=== PATIENT | male | born 1980 | race Caucasian/White ===

== ENCOUNTER 2017-06-20 09:18 | Emergency (ER) | payer MEDICARE, SELFPAY ==
[2017-06-20 09:33] VITALS: BP 146/92; PULSE 97; RESP 20; TEMP 36.9; O2SAT 96; BMI 44.0
--- NOTE | 2017-06-20 09:40 | HMH.EDUTC ---
[facility] [place] Clinical Impression: URI (upper respiratory infection) Qualifiers: URI type: unspecified URI Qualified Code(s): J06.9 - Acute upper respiratory infection, unspecified Disposition: Home, Self-Care Condition on Discharge: Good Instructions: Sore Throat, DI for Nasal Congestion, DI for Cough -- Adult Additional Instructions: * Monitor Temp. Tylenol and/or Ibuprofen as needed. ER if fever is no less than 101 despite alternating Tylenol and Ibuprofen * Encourage fluids, water, Gatorade, powerade, pedialyte if infant/toddler/or child * Warm salt water gargles for throat irritation *Warm fluids *Sore throat lozenges *Sleep elevated *humidifier or vaporizer Lots of rest Increase fluids, water, Gatorade, powerade *Flonase 2 sprays each nostril daily but may take 2-3 days to notice improvement with it *Your throat swab was sent to lab for culture. Those results area typically sent to your primary care physician. Be sure to follow up in 2-3 days if no improvement so they can review those results and treat if necessary If you dont have primary care I recommend you get one, but in the mean time you will have to return to a walk in clinic Follow up IMMEDIATELY for new or worsening of symptoms OR no noticeable improvement over the next 48-72 hours. 911 immediately for any life threatening symptoms such as chest pain or difficulty breathing Prescriptions: Azithromycin [Z-Clark 250mg Tab] 250 mg PO UD DOSE PK #6 tab predniSONE [Prednisone 20mg Tab] 20 mg PO BID #10 tab Referrals: Sadiq Almaraz [Primary Care Provider] - Time of Disposition: 09:54 Medical Decision Making - Medical Records Medical records reviewed: Yes: I reviewed the patient's medical records. Vital Signs: 06/20/17 09:33 Temperature 98.4 F Temperature Source Temporal Artery Scan Pulse Rate [Right] 97 H Respiratory Rate 20 Blood Pressure [Right Arm] 146/92 Blood Pressure Mean [Right Arm] 110 Blood Pressure Position [Right Arm] Sitting 02 Sat by Pulse Oximetry 96 Oxygen Delivery Method Room Air - Lab Data Lab results reviewed: Yes: I reviewed the patient's lab results. - Clive Inquiry Pt receiving controlled substance: No Clive was queried for this patient: No [facility] [place] - General Stated complaint: sore throat ear pain Mode of Arrival: Ambulatory Source of Information: Patient Limitations: No Limitations Description of Symptoms (Recalled from Triage Doc. by RN): sore throat, earache, cough x2 days HEENT Symptoms (Recalled from RN notes): Yes Resp Symptoms (Recalled from RN notes): No Skin Symptoms (Recalled from RN notes): No MS Symptoms (Recalled from RN notes): No Functional Status (Recalled from RN notes): N - History of Present Illness Provider Complaint: Patient state that he has been having sorethroat, earache, headache and flu like symptoms for 2 days now State that symptoms have continued to get worse States that today he has been having body aches chills and feeling worse States that his kids have been sick on and off for the last couple of weeks State that his throat feels raw and irritated and hurts when he swallows - Related Data Home Medications Medication Instructions Recorded Confirmed Escitalopram Oxalate [Lexapro] 10 mg PO DAILY 06/20/17 06/20/17 Gabapentin [Neurontin 600mg 600 mg PO DAILY 06/20/17 06/20/17 tablet] Methadone HCl [Methadone 10mg 0 mg PO DAILY 06/20/17 06/20/17 Tablet] Previous Rx's Medication Instructions Recorded Azithromycin [Z-Clark 250mg Tab] 250 mg PO UD DOSE PK #6 tab 06/20/17 predniSONE [Prednisone 20mg 20 mg PO BID #10 tab 06/20/17 Tab] Allergies Allergy/AdvReac Type Severity Reaction Status Date / Time From MYCOLOG-II Allergy Intermediate I-HIVES Uncoded 04/09/17 14:34 Penicillin Allergy Intermediate I-HIVES Uncoded 04/09/17 14:34 - Worker's Comp Is this a Worker's Comp case?: No [facility] History I have reviewed the patient's past medical histo
--- NOTE | 2017-06-20 09:43 | ED_ITS ---
[facility] – [place] Disposition Clinical Impression: URI (upper respiratory infection) Qualifiers: URI type: unspecified URI Qualified Code(s): J06.9 - Acute upper respiratory infection, unspecified Disposition: Home, Self-Care Condition on Discharge: Good Instructions: Sore Throat, DI for Nasal Congestion, DI for Cough -- Adult Additional Instructions: * Monitor Temp. Tylenol and/or Ibuprofen as needed. ER if fever is no less than 101 despite alternating Tylenol and Ibuprofen * Encourage fluids, water, Gatorade, powerade, pedialyte if infant/toddler/or child * Warm salt water gargles for throat irritation *Warm fluids *Sore throat lozenges *Sleep elevated *humidifier or vaporizer Lots of rest Increase fluids, water, Gatorade, powerade *Flonase 2 sprays each nostril daily but may take 2-3 days to notice improvement with it *Your throat swab was sent to lab for culture. Those results area typically sent to your primary care physician. Be sure to follow up in 2-3 days if no improvement so they can review those results and treat if necessary If you don? t have primary care I recommend you get one, but in the mean time you will have to return to a walk in clinic Follow up IMMEDIATELY for new or worsening of symptoms OR no noticeable improvement over the next 48-72 hours. 911 immediately for any life threatening symptoms such as chest pain or difficulty breathing Prescriptions: Azithromycin [Z-Clark 250mg Tab] 250 mg PO UD DOSE PK #6 tab predniSONE [Prednisone 20mg Tab] 20 mg PO BID #10 tab Referrals: Sadiq Almaraz [Primary Care Provider] - Time of Disposition: 09:54 Medical Decision Making - Medical Records Medical records reviewed: Yes: I reviewed the patient's medical records. Vital Signs: 06/20/17 09:33 Temperature 98.4 F Temperature Source Temporal Artery Scan Pulse Rate [Right] 97 H Respiratory Rate 20 Blood Pressure [Right Arm] 146/92 Blood Pressure Mean [Right Arm] 110 Blood Pressure Position [Right Arm] Sitting 02 Sat by Pulse Oximetry 96 Oxygen Delivery Method Room Air - Lab Data Lab results reviewed: Yes: I reviewed the patient's lab results. - Clvie Inquiry Pt receiving controlled substance: No Clive was queried for this patient: No [facility] [place] HPI - General Stated complaint: sore throat ear pain Mode of Arrival: Ambulatory Source of Information: Patient Limitations: No Limitations Description of Symptoms (Recalled from Triage Doc. by RN): sore throat, earache , cough x2 days HEENT Symptoms (Recalled from RN notes): Yes Resp Symptoms (Recalled from RN notes): No Skin Symptoms (Recalled from RN notes): No MS Symptoms (Recalled from RN notes): No Functional Status (Recalled from RN notes): N - History of Present Illness Provider Complaint: Patient state that he has been having sorethroat, earache, headache and flu like symptoms for 2 days now State that symptoms have continued to get worse States that today he has been having body aches chills and feeling worse States that his kids have been sick on and off for the last couple of weeks State that his throat feels raw and irritated and hurts when he swallows - Related Data Home Medications Medication Instructions Recorded Confirmed Escitalopram Oxalate [Lexapro] 10 mg PO DAILY 06/20/17 06/20/17 Gabapentin [Neurontin 600mg 600 mg PO DAILY 06/20/17 06/20/17 tablet] Methadone HCl [Methadone 10mg 0 mg PO DAILY 06/20/17 06/20/17 Tablet]
[2017-06-20 09:55] LABS: UTC Influenza A Antigen Negative (Negative); UTC Influenza B Antigen Negative (Negative); UTC Strep Screen (Rapid) Negative (Negative)
[2017-06-20 09:57] VITALS: BP 142/88; PULSE 88; RESP 20; TEMP 36.6
== END 2017-06-20 09:58 | disposition home or self-care (01) ==
PROVIDERS: Emergency Provider Nurse Practitioner; Family Provider Internal Medicine; PCP Internal Medicine
DX: J06.9 Acute upper respiratory infection, unspecified (principal)
CPT/HCPCS: 87804; 87880; 99203

== ENCOUNTER → 2018-02-12 11:26 | Outpatient (CLI) | payer MEDICARE, SELFPAY ==
--- NOTE | 2018-02-12 11:29 | XR_ITS ---
XR chest 2V HISTORY: ITS.REASON: FEVER, COUGH, SPUTUM ORDERING PHYSICIAN: Sadiq Almaraz PATIENT AGE: 37 years COMPARISON: 07/18/2011 FINDINGS: The cardiomediastinal silhouette and pulmonary vascularity are within normal limits. Alveolar opacification is present involving both lungs in the mid and lower lung zones consistent with bilateral pneumonia. No obvious effusion. IMPRESSION: Bilateral pneumonia
== END ==
PROVIDERS: PCP Internal Medicine; Visit Provider Internal Medicine
DX: R50.9 Fever, unspecified (principal); R05 Cough
CPT/HCPCS: 71046

== ENCOUNTER → 2018-04-11 08:13 | Outpatient (CLI) | payer MEDICARE, SELFPAY ==
--- NOTE | 2018-04-11 08:18 | XR_ITS ---
XR chest 2V HISTORY: COPD, pneumonia ITS.REASON: S/P PNEUMONIA,COPD,KNEE PAIN ORDERING PHYSICIAN: Sadiq Almaraz PATIENT AGE: 37 years COMPARISON: 02/12/2018 FINDINGS: The cardiomediastinal silhouette and pulmonary vascularity are within normal limits. There are atelectatic or fibrotic changes in the left lower lobe. Previously noted bilateral pneumonia has improved. There is an area of increased density in the infrahilar region on the right may be related to a new area of pneumonia. Overlapping vessels is also a consideration however this did not have a similar appearance on the previous exam. Would recommend continued follow-up to confirm resolution. This does not resolve then CT may be needed. There is hyperinflation with attenuation of the peripheral pulmonary vessels consistent with COPD. Slight increased density is present in the left apex and may be due to some underlying pleural thickening IMPRESSION: COPD with atelectatic or fibrotic change in the lingula. Increased density in the infrahilar region on the right which may be due to underlying pneumonia. Follow-up recommended to confirm resolution
--- NOTE | 2018-04-11 08:18 | XR_ITS ---
XR knee RT 3V HISTORY: Right knee pain ITS.REASON: S/P PNEUMONIA,COPD,KNEE PAIN ORDERING PHYSICIAN: Sadiq Almaraz PATIENT AGE: 37 years COMPARISON: 05/20/2014 FINDINGS: No fracture or dislocation. No lytic or blastic change. Normal mineralization. Mild osteoarthritic changes involve the medial compartment and patellofemoral joint. Increased density in the suprapatellar region suggesting knee joint effusion IMPRESSION: Mild osteoarthritis with knee joint effusion
== END ==
PROVIDERS: PCP Internal Medicine; Visit Provider Internal Medicine
DX: J44.9 Chronic obstructive pulmonary disease, unspecified (principal); J18.9 Pneumonia, unspecified organism; M25.561 Pain in right knee
CPT/HCPCS: 71046; 73562

== ENCOUNTER → 2018-06-05 10:43 | Outpatient (CLI) | payer MEDICARE, MEDICAID, SELFPAY ==
--- NOTE | 2018-06-05 10:47 | XR_ITS ---
XR knee RT 4V HISTORY: Right knee pain ITS.REASON: 4 views weightbearing ORDERING PHYSICIAN: Marion Randall MD PATIENT AGE: 37 years COMPARISON: None FINDINGS: Weightbearing views are performed. There is slight decrease in the medial joint space and patellofemoral joint space suggesting minimal osteoarthritic change. There is some increased density suprapatellar region suggesting small effusion. No fracture or dislocation. No lytic or blastic change. IMPRESSION: Mild osteoarthritis of the medial compartment and patellofemoral joint with possible small effusion
== END ==
PROVIDERS: PCP Internal Medicine; Visit Provider Orthopaedic Surgery
DX: M25.561 Pain in right knee (principal)
CPT/HCPCS: 73564

== ENCOUNTER → 2018-07-18 09:26 | Outpatient (CLI) | payer MEDICARE, SELFPAY ==
--- NOTE | 2018-07-18 09:30 | XR_ITS ---
XR knee LT 4V HISTORY: Knee pain, weight bearing views ITS.REASON: ap, lateral, sunrise, andersen weight bearing ORDERING PHYSICIAN: Marion Randall MD PATIENT AGE: 38 years COMPARISON: 05/20/2014 FINDINGS: There are mild osteoarthritic changes of the medial compartment and minimal osteoarthritic change of the patellofemoral joint. No fracture or dislocation. No lytic or blastic change. IMPRESSION: Osteoarthritis of the left knee at the medial compartment and patellofemoral joint which has progressed since the previous exam
== END ==
PROVIDERS: PCP Internal Medicine; Visit Provider Orthopaedic Surgery
DX: M25.562 Pain in left knee (principal)
CPT/HCPCS: 73564

== ENCOUNTER → 2020-03-02 15:33 | Outpatient (POV) | payer MEDICARE, MEDICAID, SELFPAY | DX: Z00.00 Encounter for general adult medical examination without abnormal findings (principal) ==

== ENCOUNTER → 2020-07-01 14:29 | Outpatient (CLI) | payer MEDICARE, MEDICAID, SELFPAY ==
--- NOTE | 2020-07-01 14:34 | XR_ITS ---
PROCEDURE: XR KNEE LT 4V CLINICAL INDICATION: Lt knee pain COMPARISON: CR [id number] KNEE-LIMITED 2 VIEWS-LT from 05/20/2014 CR [id number] XR knee RT 3V from 04/11/2018 CR [id number] XR knee RT 4V from 06/05/2018 CR [id number] XR knee LT 4V from 07/18/2018 FINDINGS: Mild osteoarthritic changes involve all 3 compartments and may be slightly worse at medial compartment and patellofemoral joint. There is mild lateral tibial translation by 6 mm. No fracture or dislocation. No lytic or blastic change. IMPRESSION: Mild osteoarthritic change which appears slightly worse Dictated by: Deng Moore MD 07/01/2020 15:45 Deng Moore MD in [place] 07/01/2020 15:45
--- NOTE | 2020-07-01 14:34 | XR_ITS ---
PROCEDURE: XR KNEE RT 4V CLINICAL INDICATION: RT knee pain COMPARISON: CR [id number] KNEE-3 VIEWS-RT from 01/05/2013 CR [id number] KNEE-LIMITED 2 VIEWS-LT from 05/20/2014 CR [id number] XR knee RT 3V from 04/11/2018 CR [id number] XR knee RT 4V from 06/05/2018 CR [id number] XR knee LT 4V from 07/18/2018 FINDINGS: Mild osteoarthritic change involves medial compartment patellofemoral joint and appears slightly worse compared to 04/11/2018. There is a well-circumscribed lucency through the lateral tibial plateau lateral aspect. This could be due to an old fracture or ununited ossification center. No lytic or blastic change. IMPRESSION: Mild osteoarthritic change. Well-circumscribed lucency through the lateral tibial plateau suggesting an old fracture. Dictated by: Deng Moore MD 07/01/2020 15:48 Deng Moore MD in [place] 07/01/2020 15:48
== END ==
PROVIDERS: PCP Internal Medicine; Visit Provider Orthopaedic Surgery
DX: M17.0 Bilateral primary osteoarthritis of knee (principal)
CPT/HCPCS: 73564

== ENCOUNTER → 2020-07-20 16:11 | Outpatient (CLI) | payer MEDICARE, MEDICAID, SELFPAY ==
--- NOTE | 2020-07-20 16:17 | MR_ITS ---
PROCEDURE: MR KNEE LT WO CON CLINICAL INDICATION: LT knee pain COMPARISON: No exams were available for comparison TECHNIQUE: Routine multiplanar multi echo sequences are performed without gadolinium enhancement. FINDINGS: There is a complex tear of the posterior horn of the medial meniscus. There appears to be a bucket hang till fragment adjacent to the posterior cruciate ligament. The posterior root, anterior horn and root are intact. There is a small horizontal tear of the anterior horn of the lateral meniscus. Disruption of the ACL is noted with few intact fibers. Partial tear versus sprain is suspected. There is signal abnormality within the posterior cruciate ligament but otherwise appears intact. The MCL and lateral collateral ligament complex are intact. The popliteal tendon and the posterolateral corner structures are unremarkable. The extensor mechanism appears intact. Moderate joint effusion. There is evidence of grade 2 and 3 cartilage loss in the medial, lateral and patellofemoral compartments. Multiple subchondral cystic changes noted at the intercondylar tubercles. Minor tricompartmental osteophyte formation is noted. Small Gasca cyst is noted measuring up to 2 centimeters. No significant bone marrow edema or marrow infiltrative process. IMPRESSION: Complex tear of the posterior horn of the medial meniscus. Possible bucket-handle fragment of the medial meniscus. Partial thickness tear versus sprain of the ACL. Tricompartmental grade 2 and 3 cartilage loss. Degenerative changes with the osteophyte formation. Moderate joint effusion. Dictated by: Aisha Stokes 07/21/2020 10:25 Aisha Stokes in [place] 07/21/2020 10:25
== END ==
PROVIDERS: PCP Internal Medicine; Visit Provider Orthopaedic Surgery
DX: M17.12 Unilateral primary osteoarthritis, left knee (principal)
CPT/HCPCS: 73721

== ENCOUNTER 2020-11-29 08:46 | Emergency (ER) | payer MEDICARE, MEDICAID, SELFPAY ==
[2020-11-29 08:48] VITALS: BP 131/80; PULSE 99; RESP 16; TEMP 36.7; O2SAT 97; BMI 33.3
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
[2020-11-29 09:42] VITALS: BP 107/81; PULSE 67; O2SAT 97
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
[2020-11-29 10:15] VITALS: BP 117/76; PULSE 89; O2SAT 97
[2020-11-29 11:04] VITALS: BP 121/75; PULSE 87; RESP 18; TEMP 36.8; O2SAT 98
== END 2020-11-29 11:07 | disposition home or self-care (01) ==
PROVIDERS: Emergency Provider Internal Medicine; PCP Internal Medicine
DX: S16.1XXA Strain of muscle, fascia and tendon at neck level, initial encounter (principal); V43.52XA Car driver injured in collision with other type car in traffic accident, initial encounter; Y92.488 Other paved roadways as the place of occurrence of the external cause
CPT/HCPCS: 72040; 72072; 72100; 99282

== ENCOUNTER 2021-02-14 09:00 | Outpatient (RCR) | payer MEDICARE, MEDICAID, SELFPAY | END 2021-02-14 09:05 | disposition home or self-care (01) | LOC: PT 09:00 | PROVIDERS: Visit Provider Internal Medicine | DX: M54.2 Cervicalgia (principal); M62.838 Other muscle spasm; M54.31 Sciatica, right side | CPT/HCPCS: 97010; 97012; 97014; 97110; 97140; 97163; 97164; G0283 ==

== ENCOUNTER → 2021-03-01 14:48 | Outpatient (CLI) | payer MEDICARE, MEDICAID, SELFPAY ==
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
== END ==
PROVIDERS: PCP Internal Medicine; Visit Provider Internal Medicine
DX: M54.41 Lumbago with sciatica, right side (principal)
CPT/HCPCS: 72148; 76376

== ENCOUNTER → 2021-03-27 13:02 | Outpatient (POV) | payer MEDICARE, MEDICAID, SELFPAY ==
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
[2021-03-27 13:36] VITALS: BP 146/80; PULSE 84; RESP 18; O2SAT 96; BMI 33.2
== END ==
PROVIDERS: Visit Provider Clinical Nurse Specialist Family Health
DX: M47.896 Other spondylosis, lumbar region (principal); M54.16 Radiculopathy, lumbar region; M51.26 Other intervertebral disc displacement, lumbar region; M48.061 Spinal stenosis, lumbar region without neurogenic claudication
CPT/HCPCS: 99202; G0463

== ENCOUNTER 2021-04-26 13:28 | Day surgery (SDC) | payer MEDICARE, MEDICAID, SELFPAY ==
[2021-04-26 13:47] VITALS: BP 135/78; PULSE 85; RESP 20; TEMP 37.3; O2SAT 97; BMI 32.5
[2021-04-26 14:14] VITALS: BP 161/80; PULSE 78; RESP 18; O2SAT 95
[2021-04-26 14:22] VITALS: PULSE 76; RESP 18; O2SAT 96
[2021-04-26 14:31] VITALS: BP 133/76; PULSE 78; RESP 18; O2SAT 96
--- NOTE | 2021-04-26 14:32 | HMH.PMPROC ---
- Procedure Date: 04/26/21 Time: 14:32 Anesthesiologist:: Jason Moise MD Complications:: None Pre-procedure Diagnosis:: Degenerative disc disease of lumbar spine with lumbar radiculopathy symptoms Post-procedure Diagnosis:: Same Indications for Procedure:: Patient is a pleasant 40-year-old white male who been treating for low back pain and lumbar radicular symptoms. He primarily has right-sided sciatica pain. He has tried and failed all conservative treatments. Including oral medications, and physical therapy. He is present for a lumbar epidural steroid injection today to see if this helps with his pain symptoms. Procedure Details:: Informed consent was obtained and the risk and benefits of the procedure was explained to the patient. The patient was taken to the procedure room. The patient was placed prone on the procedure table. The patient was prepped and draped in sterile fashion. C-arm fluoroscopy was used to view the lumbar spine. Skin and subcutaneous tissues were anesthetized using lidocaine. I placed an 18-gauge epidural needle and advanced into the L4-L5 interspace using fluoroscopic guidance and [id number] to air. After confirmation of needle placement in the epidural space with dye I injected 2 mL of lidocaine 1.5% with Depo-Medrol 80 mg. Patient tolerated the procedure well with no complications. Plan and Disposition:: We will follow-up with him in 2 weeks. Will reevaluate symptoms at that time.
== END 2021-04-26 14:28 | disposition home or self-care (01) ==
LOC: SC.PAINP 13:29
PROVIDERS: PCP Internal Medicine; Visit Provider Anesthesiology
DX: M51.16 Intervertebral disc disorders with radiculopathy, lumbar region (principal); I10 Essential (primary) hypertension; F12.10 Cannabis abuse, uncomplicated; J44.9 Chronic obstructive pulmonary disease, unspecified; M19.90 Unspecified osteoarthritis, unspecified site; Z72.0 Tobacco use; Z88.0 Allergy status to penicillin; Z88.8 Allergy status to other drugs, medicaments and biological substances
CPT/HCPCS: 62323; J1040; Q9966

== ENCOUNTER → 2021-05-09 09:40 | Outpatient (POV) | payer MEDICARE, MEDICAID, SELFPAY ==
[2021-05-09 09:51] VITALS: BP 140/81; PULSE 63; RESP 18; O2SAT 95; BMI 31.1
--- NOTE | 2021-05-09 09:54 | P.CONS_ITS ---
[facility] Pain Management SOAP Note Subjective:: Patient is a 40-year-old white male who presents today for follow-up. He recently had a lumbar epidural steroid injection L4-L5. He does report that his pain did go from a 7 out of 10 to a 4 out of 10. He reports to have had significant pain with the injection. He would like to proceed with repeat injection. He has low back pain with radiation into bilateral lower extremities. He has tried oral medications along with physical therapy for more than 6 weeks and continues with home stretching. 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 Review of Systems General: No recent weight changes, no fever, no sleep disturbances Respiratory: No cough, no shortness of air, no recurring pulmonary infections Cardiovascular/peripheral vascular: No chest pain, no palpitations, no edema, no shortness of breath Gastrointestinal: No new onset incontinence, normal bowel movements reported Genitourinary: No new onset incontinence Musculoskeletal: Low back pain with radiation into bilateral lower extremities Psychiatric: [Normal mood/affect] Neurological: [Denies weakness in extremities], [denies balance issues] Objective:: Physical exam General: Alert and oriented x3, no acute distress, pleasant and cooperative Lungs: Respirations even and unlabored, symmetrical chest expansion Eyes: PERRL Musculoskeletal: Flexion and extension of lumbar [spine] somewhat guarded secondary to pain, [antalgic gait noted] Neurological: Speech clear, no gross sensory deficit Assessment:: Degenerative disc disease lumbar spine with lumbar radiculopathy symptoms Plan:: We will schedule the patient for a #2 lumbar epidural steroid injection L4-L5. He is not on any anticoagulation therapy and is not diabetic. We will see him back in the clinic after the injection for further evaluation. ORT is high risk. Patient has signed and completed a pain management agreement/contract today. Possible side effects of corticosteroids have been discussed with the patient. Risks and benefits of the procedure have been explained to the patient. Patient would like to proceed with the procedure. Patient has been instructed to contact the clinic with any concerns before the next appointment. Dr. Moise has reviewed this note and agrees with this plan of care. This note was dictated using voice recognition software and make contain errors or omissions. [facility] History I have reviewed the patient's past medical history: Yes Medical History: Reports:: Hypertension *Have you ever received a pneumonia vaccine?: No *Have you received a flu vaccine this season?: No Other Medical History: Reports: Arthritis Laterality Cases: Bilateral: Tonsillectomy Other Surgeries: Yes: No Previous Surgery - *Social History Smoking Status: Current every day smoker Tobacco Type: cigarettes # Packs/Day (cigarettes): 2 Alcohol Intake: former Substance Use Type: marijuana *Occupational Status:: disabled *Travel in the last 8 weeks: None Family Hx:: Other
== END ==
PROVIDERS: Visit Provider Clinical Nurse Specialist Family Health
DX: M51.16 Intervertebral disc disorders with radiculopathy, lumbar region (principal)
CPT/HCPCS: 99212; G0463

== ENCOUNTER → 2021-06-12 09:55 | Outpatient (CLI) | payer MEDICARE, MEDICAID, SELFPAY ==
--- NOTE | 2021-06-12 10:02 | XR_ITS ---
FINAL REPORT CLINICAL HISTORY: S/P FALL,RT SHOULDER PAIN FINDINGS: 3 views of the right shoulder were obtained. There is no acute fracture or dislocation. There are mild hypertrophic changes at the AC joint. There are no soft tissue abnormalities. IMPRESSION: No acute process. Reviewed, Interpreted and Dictated by Roberto Rivera MD Transcribed by Cal Ruth Authenticated by Roberto Rivera MD on 06/12/2021 11:17:[address] [facility]
== END ==
PROVIDERS: PCP Internal Medicine; Visit Provider Internal Medicine
DX: M25.511 Pain in right shoulder (principal); W19.XXXD Unspecified fall, subsequent encounter
CPT/HCPCS: 73030

== ENCOUNTER 2021-06-23 13:18 | Day surgery (SDC) | payer MEDICARE, MEDICAID, SELFPAY ==
[2021-06-23 13:21] VITALS: BP 125/79; BP 130/78; BP 133/73; PULSE 68; PULSE 73; RESP 17; RESP 18; TEMP 37.1; O2SAT 97; O2SAT 98; O2SAT 99; BMI 32.1
[2021-06-23 13:36] VITALS: BP 135/81; PULSE 82; O2SAT 98
--- NOTE | 2021-06-23 13:40 | HMH.PMPROC ---
- Procedure Date: 06/23/21 Time: 13:40 Anesthesiologist:: Jason Moise MD Complications:: None Pre-procedure Diagnosis:: Degenerative disc disease of lumbar spine with lumbar radiculopathy symptoms Post-procedure Diagnosis:: Same Indications for Procedure:: Patient is a pleasant 41-year-old white male who we are treating for low back pain with lumbar radiculopathy symptoms. He has increasing pain in his back radiating down both legs. We will plan on lumbar epidural steroid injection under fluoroscopy today to see if this helps with his pain symptoms. Worst pain is on the right today. Procedure Details:: Informed consent was obtained and the risk and benefits of the procedure was explained to the patient. The patient was taken to the procedure room. The patient was placed prone on the procedure table. The patient was prepped and draped in sterile fashion. C-arm fluoroscopy was used to view the lumbar spine. Skin and subcutaneous tissues were anesthetized using lidocaine. I placed an 18-gauge epidural needle and advanced into the L4-L5 interspace using fluoroscopic guidance and [id number] to air. After confirmation of needle placement in the epidural space with dye I injected 2 mL of lidocaine 1.5% with Depo-Medrol 80 mg. Patient tolerated the procedure well with no complications. Plan and Disposition:: We will follow-up with him in 2 weeks. Will reevaluate symptoms at that time.
== END 2021-06-23 13:36 | disposition home or self-care (01) ==
LOC: SC.PAINP 13:19
PROVIDERS: PCP Internal Medicine; Visit Provider Anesthesiology
DX: M51.16 Intervertebral disc disorders with radiculopathy, lumbar region (principal); I10 Essential (primary) hypertension; Z72.0 Tobacco use
CPT/HCPCS: 62323; J1040; Q9966

== ENCOUNTER → 2021-07-20 13:23 | Outpatient (POV) | payer MEDICARE, MEDICAID, SELFPAY ==
[2021-07-20 13:20] VITALS: BP 125/66; PULSE 82; RESP 18; TEMP 37.6; O2SAT 97; BMI 32.1
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
== END ==
PROVIDERS: Visit Provider Student in an Organized Health Care Education/Training Program
DX: M51.16 Intervertebral disc disorders with radiculopathy, lumbar region (principal)
CPT/HCPCS: 99212; G0463

== ENCOUNTER 2021-08-04 12:28 | Day surgery (SDC) | payer MEDICARE, MEDICAID, SELFPAY ==
[2021-08-04 12:37] VITALS: BP 125/67; PULSE 75; RESP 18; TEMP 37.6; O2SAT 95; BMI 32.1
--- NOTE | 2021-08-04 12:48 | HMH.PMPROC ---
- Procedure Date: 08/04/21 Time: 12:48 Anesthesiologist:: Gutierrez Reis CRNA Complications:: None Pre-procedure Diagnosis:: Degenerative disc disease lumbar spine. Bar radiculopathy symptoms. Post-procedure Diagnosis:: Same Indications for Procedure:: Patient is a pleasant 41-year-old male who returns to our injection clinic for a second lumbar epidural steroid injection at the L4-5 level. Patient has had 60 to 70% improvement terms of his low back pain as well as radicular symptoms with first lumbar epidural steroid injection at the L4-5 level. We will repeat the injection today. Procedure Details:: Procedure: Lumbar epidural steroid injection under fluoroscopy Informed consent was obtained and the risks and benefits of the procedure were explained to the patient. The patient was taken to the procedure room and noninvasive monitors placed, including noninvasive blood pressure cuff and pulse oximeter. The back was viewed using C-arm Fluoroscopy and prepped using Betadine as a cleansing solution and the L4-L5 interspace was palpated. Skin and subcutaneous tissues were anesthetized using lidocaine 1.5% and a 25-gauge needle. After this, an 18-gauge Touhy epidural needle was placed into the L4-L5 interspace and advanced using fluoroscopic guidance and loss of resistance to air until the epidural space was encountered. After confirmation of needle placement in the epidural space, with dye, a solution containing lidocaine 1.5%, 4 mL and Depo-Medrol 80 mg were incrementally injected into the lumbar epidural space. The patient tolerated the procedure well with no complications. The patient was observed in the Pain Clinic and then discharged home neurologically intact. Plan and Disposition:: Patient was discharged from the clinic without difficulty. He will return to see us for follow-up as needed.
[2021-08-04 12:49] VITALS: BP 123/67; PULSE 73; RESP 20; O2SAT 97
[2021-08-04 12:53] VITALS: BP 123/67; PULSE 74; RESP 20; O2SAT 97
[2021-08-04 12:55] VITALS: BP 129/69; PULSE 78; RESP 18; O2SAT 96
== END 2021-08-04 12:56 | disposition home or self-care (01) ==
LOC: SC.PAINP 12:29
PROVIDERS: PCP Internal Medicine; Visit Provider Nurse Anesthetist, Certified Registered
DX: M51.16 Intervertebral disc disorders with radiculopathy, lumbar region (principal); I10 Essential (primary) hypertension; F12.90 Cannabis use, unspecified, uncomplicated
CPT/HCPCS: 62323; J1040

== ENCOUNTER → 2021-09-11 14:36 | Outpatient (POV) | payer MEDICARE, MEDICAID, SELFPAY ==
[2021-09-11 14:43] VITALS: BP 168/89; PULSE 89; RESP 18; TEMP 37.4; O2SAT 93; BMI 32.1
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
== END ==
PROVIDERS: Visit Provider Student in an Organized Health Care Education/Training Program
DX: M51.16 Intervertebral disc disorders with radiculopathy, lumbar region (principal)
CPT/HCPCS: 99212; G0463

== ENCOUNTER → 2021-12-11 12:01 | Outpatient (CLI) | payer MEDICARE, MEDICAID, SELFPAY ==
--- NOTE | 2021-12-11 12:04 | XR_ITS ---
FINAL REPORT CLINICAL HISTORY: R/O ganglion cyst. Mass on Lt wrist x mos. FINDINGS: LEFT WRIST Three views demonstrate no acute fracture or dislocation. The visualized joint spaces are normally aligned. There is a mild ulnar negative variance. There is soft tissue swelling overlying the dorsum of the wrist. IMPRESSION: Soft tissue swelling overlying the dorsum of the wrist. Mild ulnar negative variance. Reviewed, Interpreted and Dictated by Roberto Rivera MD Transcribed by Magy Ohara Authenticated and [facility]
== END ==
PROVIDERS: PCP Internal Medicine; Visit Provider Orthopaedic Surgery
DX: M67.432 Ganglion, left wrist (principal)
CPT/HCPCS: 73110

== ENCOUNTER 2021-12-20 19:42 | Emergency (ER) | payer MEDICARE, MEDICAID, SELFPAY ==
[2021-12-20 19:44] VITALS: BP 147/94; PULSE 78; RESP 19; TEMP 36.6; O2SAT 99; BMI 31.4
--- NOTE | 2021-12-20 20:20 | HMH.EDSKAF ---
Discharge Plan Disposition Chief Complaint: Skin/Abscess/Foreign Body Prescriptions Prescriptions: No Action tizanidine 4 mg tablet 4 mg PO TID PRN (Reason: bladder) ibuprofen 600 mg tablet 600 mg PO TID tadalafil 20 mg tablet 20 mg PO NEEDED PRN (Reason: sexual activity) Label Comments: TAKE ONE TABLET BY MOUTH ONCE daily NEEDED Chantix 1 mg tablet 1 mg PO BID gabapentin 600 MG tablet 600 mg PO DAILY escitalopram oxalate 10 MG tablet 10 mg PO DAILY diclofenac potassium 50 MG tablet 50 mg PO TID Referrals Follow up/Referrals: Sadiq Almaraz MD [Primary Care Provider] - See instructions Clinical Impressions Clinical Impression: Laceration Instructions Patient Instructions: DI for Laceration Repair Discharge ED Provider: Eduin Mayorga Skin/Abscess/FB HPI General Chief complaint: Skin/Abscess/Foreign Body Stated complaint: Lesson removed fr leg bleeding Time Seen by Provider: 12/20/21 20:20 Mode of Arrival: Family Vehicle Source of Information: Patient and Medical Record Limitations: No Limitations Description of Symptoms (Recalled from ER Triage Doc. by RN): Pt c/o bleeding from posterior R calf incision site. States Dr. Almaraz removed a lesion from his calf around 1400 today. Pt crossed his left and a stich popped out @ 1800. Blood continues to slowly seep through dressings. History of Present Illness HPI narrative: pt with excisional bx today at his office and area with bleeding ernesto [place] complaint: laceration Onset (ago): hour(s) Tetanus up to date: unsure Severity: mild Related Data Home Medications Medication Instructions Recorded Confirmed escitalopram oxalate 10 mg tablet 10 mg PO DAILY Depression 06/20/17 09/11/21 gabapentin 600 mg tablet 600 mg PO DAILY Pain 06/20/17 09/11/21 ibuprofen 600 mg tablet 600 mg PO TID Pain 06/06/18 09/11/21 tizanidine 4 mg tablet 4 mg PO TID PRN bladder 06/06/18 09/11/21 varenicline 1 mg tablet (Chantix) 1 mg PO BID antiviral 07/18/18 09/11/21 tadalafil 20 mg tablet 20 mg PO NEEDED PRN sexual 12/09/20 09/11/21 activity diclofenac potassium 50 mg tablet 50 mg PO TID Pain 12/20/20 09/11/21 Allergies Allergy/AdvReac Type Severity Reaction Status Date / Time nystatin [From Mycolog II] Allergy Intermediate Hives Verified 12/12/21 14:45 Penicillins Allergy Intermediate Hives Verified 12/12/21 14:45 triamcinolone Allergy Intermediate Hives Verified 12/12/21 14:45 [From Mycolog II] PFSH PFS Social History Smoking Status: Current every day smoker tobacco type: cigarettes packs per day: 1 alcohol intake: never substance use type: marijuana current occupational status: unemployed ROS Obtained: Yes All systems reviewed & no additional complaints except as documented Physical Exam General General appearance: alert Head Head exam: normocephalic Eye Eye exam: Present PERRL and EOMI ENT ENT exam: Present normal oropharynx Neck Neck exam: Present trachea midline Respiratory Respiratory exam: Present normal lung sounds bilaterally Cardiovascular Cardiovascular exam: Present regular rate Extremities Exam Extremities exam: Present full ROM Neurological Exam Neurological exam: Present alert and CN II-XII intact Skin Skin exam: Present other (oozing from excisional site - no evid of infection or dehiscenece - ) Medical Decision Making Medical Records Medical records reviewed: Yes I reviewed the patient's medical records. Clive Inquiry Pt receiving controlled substance: No Vital Signs: 12/20/21 19:44 Temperature 98 F Temperature Source Oral Pulse Rate [Right] 78 Respiratory Rate 19 Blood Pressure [Right Arm] 147/94 H Blood Pressure Mean [Right Arm] 111 02 Sat by Pulse Oximetry 99 Oxygen Delivery Method Room Air Lab Data Lab results reviewed: Yes I reviewed the patient's lab results. Medical Decision Narrative: repaired with sutures x 2 Procedures Lac
[2021-12-20 20:37] VITALS: BP 135/88; PULSE 75; RESP 19; TEMP 37.1; O2SAT 98
== END 2021-12-20 20:41 | disposition home or self-care (01) ==
PROVIDERS: Emergency Provider Emergency Medicine; PCP Internal Medicine
DX: S81.811A Laceration without foreign body, right lower leg, initial encounter (principal)
CPT/HCPCS: 12001; 99282

== ENCOUNTER 2024-06-23 11:27 | Outpatient (CLI) | payer MEDICARE, MEDICAID, SELFPAY ==
--- NOTE | 2024-06-23 11:31 | XR_ITS ---
FINAL REPORT CLINICAL HISTORY: Left knee pain and swelling COMPARISON: 07/01/2020 FINDINGS: LEFT KNEE Three views were obtained. There is no fracture or dislocation. There is moderate tricompartment degenerative change, slightly worse. Small joint effusion is identified. No soft tissue abnormality is identified. IMPRESSION: Progression of degenerative changes. Reviewed, Interpreted and Dictated by Rasheeda Mccormick MD Transcribed by Ayse Carpio Authenticated and [facility]
== END 2024-06-23 23:59 | disposition home or self-care (01) ==
LOC: RAD 11:28
PROVIDERS: PCP Internal Medicine; Visit Provider Internal Medicine
DX: M25.562 Pain in left knee (principal); M25.462 Effusion, left knee
CPT/HCPCS: 73562

== ENCOUNTER 2024-07-17 23:16 | Emergency (ER) | payer MEDICARE, MEDICAID, SELFPAY ==
[2024-07-17 23:40] VITALS: BP 150/104; PULSE 77; RESP 17; TEMP 36.8; O2SAT 97; BMI 37.6
[2024-07-17 23:55] VITALS: BP 161/102; PULSE 81; O2SAT 95
--- NOTE | 2024-07-17 23:55 | CT_ITS ---
PROCEDURE INFORMATION: Exam: CT Abdomen And Pelvis With Contrast Exam date and time: 07/18/2024 12:25 AM Age: 44 years old Clinical indication: Other: Hematuria painful urination TECHNIQUE: Imaging protocol: Computed tomography of the abdomen and pelvis with contrast. Radiation optimization: All CT scans at this facility use at least one of these dose optimization techniques: automated exposure control; mA and/or kV adjustment per patient size (includes targeted exams where dose is matched to clinical indication); or iterative reconstruction. Contrast material: ISOVUE; Contrast volume: 75 ml; Contrast route: IV; COMPARISON: MR LUMBAR SPINE WO CON 03/01/2021 3:15 PM FINDINGS: Lungs: No acute finding. Liver: Normal. No mass. Gallbladder and biliary ducts: Normal. No calcified stones. No ductal dilation. Pancreas: Normal. No ductal dilation. Spleen: Normal. No splenomegaly. Adrenal glands: Normal. No mass. Kidneys and ureters: No hydronephrosis. Tiny left intrarenal calculus. Stomach and bowel: Unremarkable. No obstruction. No mucosal thickening. Appendix: No evidence of appendicitis. Intraperitoneal space: Unremarkable. No free air. No significant fluid collection. Vasculature: Unremarkable. No abdominal aortic aneurysm. Lymph nodes: Unremarkable. No enlarged lymph nodes. Urinary bladder: 4 mm calculus in the region of the right UVJ without hydronephrosis. The urinary bladder is otherwise unremarkable. Reproductive: Unremarkable as visualized. Bones/joints: There are moderate degenerative changes of the spine. No acute fracture. Soft tissues: Unremarkable. IMPRESSION: 4 mm right UVJ calculus without hydronephrosis. Tiny left intrarenal calculus.
--- NOTE | 2024-07-17 23:55 | [facility].EDGENADL ---
Discharge Plan Disposition Patient Disposition: Home, Self-Care Condition: Good Prescriptions Prescriptions: New tamsulosin 0.4 mg capsule 0.4 mg PO HS Qty: 14 0RF ondansetron 4 mg tablet,disintegrating 4 mg PO Q6H PRN (Reason: nausea and vomiting) Qty: 10 0RF oxycodone 5 mg tablet 5 mg PO Q6H PRN (Reason: pain) Qty: 7 0RF No Action gabapentin 600 mg tablet 600 mg PO TID Qty: 90 1RF tizanidine 4 mg tablet 4 mg PO TID PRN (Reason: muscle spasticity) Qty: 60 1RF tobramycin-dexamethasone 0.3-0.1 % drops,suspension 2 drp ophthalmic (eye) BID 10 Days Qty: 5 0RF Rx Instructions: Patient to use in RIGHT EAR Trelegy Ellipta 100-62.5-25 mcg blister with device 1 inh inhalation DAILY Qty: 60 2RF ofloxacin 0.3 % drops See Rx Instructions .ROUTE .COMPLEX Qty: 10 2RF Dose Instruction: instill 10 drops IN EACH EAR TWICE DAILY FOR FOURTEEN DAYS Rx Instructions: instill 10 drops IN EACH EAR TWICE DAILY FOR FOURTEEN DAYS ibuprofen 800 mg tablet See Rx Instructions .ROUTE .COMPLEX Qty: 90 1RF Dose Instruction: TAKE ONE TABLET BY MOUTH THREE TIMES DAILY NEEDED FOR PAIN OR FEVER Rx Instructions: TAKE ONE TABLET BY MOUTH THREE TIMES DAILY NEEDED FOR PAIN OR FEVER tadalafil 20 mg tablet See Rx Instructions .ROUTE .COMPLEX Qty: 10 5RF Dose Instruction: TAKE ONE TABLET BY MOUTH EVERY DAY NEEDED FOR sexual activity Rx Instructions: TAKE ONE TABLET BY MOUTH EVERY DAY NEEDED FOR sexual activity Referrals Follow up/Referrals: Sadiq Almaraz MD [Primary Care Provider] - See instructions Amadeo Cooper MD [Referring] - See instructions (4mm R UVJ stone and hematuria) Activity Restrictions/Add. Instructions Additional Instructions/Restrictions: You were evaluated in the ER and are appropriate for discharge at this time. You have a very small right sided kidney stone. This should pass on its own. Drink plenty of fluids to help this pass. Also take the prescribed tamsulosin as directed to help it pass. Use the strainer when you urinate to catch the stone. Your urologist may want to evaluate it. You have been referred to Dr. Cooper with urology for outpatient follow-up. Take the prescribed ondansetron if needed for nausea. Take Tylenol or ibuprofen if needed for pain. Do not exceed the recommended dose on the bottle. Drink water and eat a small snack each time you take these medications to avoid side effects. If your pain is not well-controlled with these medications, only then should you take the prescribed oxycodone. This medication can be addictive and sedating. Do not drive or operate machinery after taking this medication. Clinical Impressions Clinical Impression: Hematuria, Calculus of distal right ureter Instructions Patient Instructions: DI for Urinary Tract Infection (UTI), DI for Urinary Tract Infection in Children Print Language Print Language: Kinyarwanda Discharge ED Provider: Shae Reed General Adult HPI General Chief complaint: Urogenital-Male Stated complaint: possible blood in urine,prior back, lower abd pain Time Seen by Provider: 07/17/24 23:57 Mode of Arrival: Ambulatory Description of Symptoms (Recalled from ER Triage Doc. by RN): States he has been having blood in his urine for 1 hour. He states it was painful but is no longer painful. He denies a hx of kidney stones. He states his urine looks like grapefruit juice. History of Present Illness HPI narrative: 44-year-old male presents to the ER for hematuria. Patient states for the last day he has been having mild intermittent back pain, he states he has chronic low back pain so he did not think much of it but tonight he was on the toilet having a bowel movement and felt the pain suddenly moved from the back to the front and then he passed blood. He states it was painful to urinate but is no longer painful. He has not passing clots. He states his urine is stained with blood, it is not frankly bloody. No history of kidney stones. Denies any pain at this time. Resting comfortably. No fevers, chills, abdominal pain, nausea, vomiting, or any other complaints or concerns. Related Data Previous Rx's ?Medication ?Instructions ?Recorded tobramycin 0.3 %-dexamethasone 0.1 2 drp ophthalmic (eye) BID 10 days 09/25/23 % eye drops,suspension #5 mL gabapentin 600 mg tablet 600 mg PO TID Pain #90 tabs 04/01/24 tizanidine 4 mg tablet 4 mg PO TID PRN muscle spasticity 02/27/25 #60 tabs fluticasone fur. 100 mcg-umeclid 1 inh inhalation DAILY #60 ea 07/03/24 62.5 mcg-vilant 25 mcg inhalat.powder (Trelegy Ellipta) ofloxacin 0.3 % ear drops See Rx Instructions .Route 07/03/24 .COMPLEX #10 mL ibuprofen 800 mg tablet See Rx Instructions .Route 07/10/24 .COMPLEX #90 tabs tadalafil 20 mg tablet See Rx Instructions .Route 07/10/24 .COMPLEX #10 tabs ondansetron 4 mg disintegrating 4 mg PO Q6H PRN nausea and 07/18/24 tablet vomiting #10 tabs oxycodone 5 mg tablet 5 mg PO Q6H PRN pain #7 tabs 07/18/24 tamsulosin 0.4 mg capsule 0.4 mg PO HS #14 caps 07/18/24 Allergies Allergy/AdvReac Type Severity Reaction Status Date / Time nystatin (From Mycolog II) Allergy Intermediate Hives Verified 07/17/24 23:43 Penicillins Allergy Intermediate Hives Verified 07/17/24 23:43 triamcinolone (From Mycolog Allergy Intermediate Hives Verified 07/17/24 23:43 II) levofloxacin AdvReac Intermediate Hives Verified 07/17/24 23:43 PFS PFS Disclaimer: The information contained in this section may have been updated after the patient was seen, as this information can be updated by other users. 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 Social History Smoking Status: Current every day smoker tobacco type: cigarettes packs per day: 1 quit status: not considering quitting alcohol intake: never substance use type: marijuana and amphetamines counseling given: Yes current occupational status: unemployed Travel in the last 8 weeks: None household members: significant other, family and children housing: house lives independently: No number of children: 6 pets and animals: Yes pets and animals: cat(s) and dog(s) sexually active: Yes Have you lived/traveled outside [place] in past 30 days?: No Contact w/someone who lives/traveled outside [place] past 30 days?: No Exposure to someone with infectious disease in past 14 days?: No Do you have a fever (greater than 100.4 F or 38 C)?: No Have you tested positive for COVID-19: No Exposed to someone with COVID-19 in past 14 days?: No Do you have a sore throat?: No Do you have a cough?: No Do you have any weakness?: No Do you have any diarrhea?: No Are you experiencing any unusual bleeding?: Yes Do you have any muscle aches/pain?: No Do you have any abdominal pain?: Yes Are you experiencing loss of taste or smell?: No Other Medical History Have you received the Flu Vaccine for this season: No Have you received the Pneumonia Vaccine: No ROS Obtained: Yes Systems reviewed as appropriate & no additional complaints except as documented Per HPI Physical Exam General General appearance: alert and in no apparent distress Head Head exam: atraumatic and normocephalic Eye Eye exam: Present PERRL and EOMI ENT ENT exam: Present mucous membranes moist Neck Neck exam: Present normal inspection and full ROM Chest Chest inspection: Present symmetric chest wall rise Respiratory Respiratory exam: Present normal lung sounds bilaterally; Absent respiratory distress, wheezes or stridor Cardiovascular Cardiovascular exam: Present regular rate and normal rhythm Abdominal Exam Abdominal exam: Present soft; Absent distention or tenderness Extremities Exam Extremities exam: Present full ROM Back Exam Back exam: Absent CVA tenderness (R) or CVA tenderness (L) Neurological Exam Neurological exam: Present alert, oriented X3 and normal gait; Absent motor sensory deficit Psychiatric Psychiatric exam: Present normal affect and normal mood Skin Skin exam: Present warm and dry Medical Decision Making Medical Records Screening: Per USPSTF and CDC recommendations, given the prevalence of disease in our region, it is our hospital?s policy to screen for HIV and viral Hepatitis for all patients aged 18 and over and those with ongoing risk factors. Clive Inquiry Pt receiving controlled substance: No Vital Signs: 07/17/24 23:40 Temperature 98.3 F Temperature Source Oral Pulse Rate [Right Brachial] 77 Respiratory Rate 17 Blood Pressure [Right Arm] 150/104 H Blood Pressure Mean [Right Arm] 119 Blood Pressure Source [Right Arm] Automatic Cuff Blood Pressure Position [Right Arm] Sitting 02 Sat by Pulse Oximetry 97 Oxygen Delivery Method Room Air Lab Data Lab Results 07/17/24 23:51: WBC 13.9 H, RBC 4.57 L, Hgb 14.5, Hct 41.7 L, MCV 91.2, MCH 31.7 H, MCHC 34.8, RDW 13.4, Plt Count 225, MPV 9.2, Neut % (Auto) 54.1, Lymph % (Auto) 33.5, Tyrrell % (Auto) 8.3, Eos % (Auto) 3.4, Baso % (Auto) 0.5, Neut # (Auto) 7.5, Lymph # (Auto) 4.7 H, Tyrrell # (Auto) 1.2 H, Eos # (Auto) 0.5 H, Baso # (Auto) 0.1, Sodium 137, Potassium 3.9, Chloride 102, Carbon Dioxide 22, Anion Gap 16.9 H, BUN 17, Creatinine 0.90, Estimated Creat Clear 178, Estimated GFR 91, Est GFR ( Amer) 110, Glucose 105 H, Calcium 9.4, Total Bilirubin 0.5, AST 28, ALT 20, Alkaline Phosphatase 82, Total Protein 7.2, Albumin 4.7, Globulin 2.5, Albumin/Globulin Ratio 1.9 H, Urine Color Yellow, Urine Appearance Clear, Urine pH 6.0, Ur Specific Bloomer <= 1.005, Urine Protein Negative, Urine Glucose (UA) Negative, Urine Ketones Negative, Urine Blood 3+ A, Urine Nitrate Negative, Urine Bilirubin Negative, Urine Urobilinogen 0.2, Ur Leukocyte Esterase Negative, Urine RBC 20-50, Urine WBC Occasional, Ur Squamous Epith Cells None, Urine Bacteria Trace, HCV Ab DUNCAN w/Rflx PCR Qn Negative, HIV Ag/Ab Combo Qual Negative 07/17/24 23:51 07/17/24 23:51 Orders (Tests/Meds): ED MEDICATIONS Generic Name Dose Route Start Last Admin Trade Name Freq PRN Reason Stop Dose Admin Sodium Chloride 10 ml 07/18/24 00:35 07/18/24 00:40 Sodium Chloride 0.9% 10ml Syr (Rad Only) IV 08/17/24 00:34 10 ml NEEDED PRN Administration Maintain IV Site Discontinued Medications Generic Name Dose Route Start Last Admin Trade Name Freq PRN Reason Stop Dose Admin Lactated Ringer's 1,000 mls @ 999 mls/hr 07/17/24 23:56 07/18/24 00:04 Lactated Ringer's 1000 Ml Bag IV 07/18/24 00:56 999 mls/hr .Q1H1M ONE Administration Iopamidol 75 ml 07/18/24 00:35 07/18/24 00:40 Iopamidol-370 (76%);100ml Bottle IV 07/18/24 00:36 75 ml ONCE ONE Administration Ketorolac Tromethamine 30 mg 07/17/24 23:56 07/18/24 00:04 Ketorolac 30mg/Ml Vial IV 07/17/24 23:57 30 mg ONCE ONE Administration Tamsulosin HCl 0.4 mg 07/18/24 01:25 07/18/24 01:27 Tamsulosin 0.4mg Capsule PO 07/18/24 01:26 0.4 mg ONCE ONE Administration ORDERS Category Date Time Status CT abdomen pelvis w con Stat Cat Scan 07/17/24 23:55 Completed CBC w/Auto Diff [Complete Blood Count Auto Diff] Stat Lab 07/17/24 23:51 Completed CMP [Comprehensive Metabolic Panel] Stat Lab 07/17/24 23:51 Completed HIV Combo Stat Lab 07/17/24 23:51 Completed Hepatitis C Ab Qual. W/ RFX Stat Lab 07/17/24 23:51 Completed Urinalysis and Microscopic Stat Lab 07/17/24 23:51 Completed Medical Decision Narrative: In summary, 44-year-old male presents to the ER with complaints of hematuria. Differential diagnosis includes but is not limited to UTI, pyelonephritis, kidney stone, also considered possibility of bladder mass, kidney dysfunction, among others. On evaluation patient is hemodynamically stable, afebrile, exam is benign and he is pain-free at this time. Ruling out the most morbid conditions drove my assessment. Serum labs, urine studies, CT imaging were ordered. Patient received Toradol and IV fluids. Labs reviewed by me demonstrate mild leukocytosis, no anemia, platelets normal, CMP nonactionable, patient has good kidney function stable from previous labs however previous labs are from 2006. UA with blood but otherwise negative for findings of infection. CT abdomen pelvis personally interpreted demonstrates small right ureteral stone without significant hydronephrosis. See radiology read for final interpretation. On reassessment patient continues to be stable and is resting comfortably. He was provided a strainer to capture his urine and potentially capture a stone. He was referred to urology for outpatient follow-up. He was given prescriptions for tamsulosin, Zofran, and oxycodone if needed for severe breakthrough pain. Patient is comfortable with this plan. Patient was given instructions on symptomatic management, follow up instructions, and return precautions for the emergency department. Patient indicated understanding and was discharged in stable condition. Critical Care Critical Care Time Critical Care Time: No
[2024-07-18] VITALS (16 sets, daily range): BP systolic 143–179; BP diastolic 89–114; PULSE 74–80; RESP 18; TEMP 36.8; O2SAT 94–98
[2024-07-18] LABS: Microscopic, Urine URINE MICROSCOPIC (MICROSCOPIC)
[2024-07-18 00:02] LABS: Hematocrit 41.7 % (42.0-52.0); Hemoglobin 14.5 g/dL (14.1-18.0); Mean Corpuscular Volume 91.2 fl (80-94); Red Blood Count 4.57 M/mm3 (4.60-6.20); White Blood Count 13.9 K/mm3 (4.8-10.8)
[2024-07-18 00:03] LABS: Basophils % 0.5 % (0.1-2.0); Eosinophils # 0.5 K/mm3 (0.0-0.4); Eosinophils % 3.4 % (0.1-12.0); Lymphocytes # 4.7 K/mm3 (0.7-4.5); Lymphocytes % 33.5 % (10-50); Mean Corpuscular HGB Conc 34.8 g/dL (31.8-35.4); Mean Corpuscular Hemoglobin 31.7 pg (27.0-31.2); Mean Platelet Volume 9.2 fl (7.4-10.4); Monocytes # 1.2 K/mm3 (0.1-1.0); Monocytes % 8.3 % (1.7-9.3); Neutrophils # 7.5 K/mm3 (1.8-7.8); Neutrophils % 54.1 % (37.0-80.0); Platelet Count 225 K/mm3 (142-424); Red Cell Distribution Width 13.4 % (11.5-17.5)
[2024-07-18 00:04] LABS: Basophils # 0.1 K/mm3 (0-0.2)
[2024-07-18] MEDS: LACTATED RINGERS 1000ML 1,000 ML 999 ML IV (00:04)
[2024-07-18] MEDS: KETOROLAC 30MG/ML VIAL 30 MG IV (00:04)
[2024-07-18 00:05] LABS: Appearance,Urine CLEAR (Clear); Bilirubin,Urine Negative (Negative); Blood, Urine 3+ (Negative); Color,Urine YELLOW (Yellow); Glucose,Urine (UA) Negative (Negative); Ketones,Urine Negative (Negative); Leukocyte Esterase,Urine Negative (Negative); Nitrate,Urine Negative (Negative); Protein,Urine Negative (Negative); Specific Gravity, Urine <= 1.005 (1.005-1.030); Urobilinogen,Urine 0.2 EU/dl (0.2)
[2024-07-18 00:12] LABS: Albumin Level 4.7 g/dl (3.5-5.0); Chloride 102 mmol/L (98-107); Potassium 3.9 mmoL/L (3.5-5.1); Sodium 137 mmol/L (136-145)
[2024-07-18 00:15] LABS: Alanine Aminotransferase 20 U/L (12-78); Albumin/Globulin Ratio 1.9 (1.1-1.8); Alkaline Phosphatase 82 U/L (38-126); Anion Gap 16.9 mEq/L (5-15); Aspartate Amino Transferase 28 U/L (17-59); Bilirubin,Total 0.5 mg/dl (0.2-1.3); Blood Urea Nitrogen 17 mg/dl (9-20); Carbon Dioxide 22 mmol/L (22.0-30.0); Creatinine Clearance Estimated 178 mL/min (50-200); Estimated Glomerular Filt Rate 91 ml/min (>60); GFR (African American) 110 ML/MIN (>60); Globulin 2.5 g/dL (1.3-3.2); Total Protein,Serum 7.2 g/dl (6.3-8.2)
[2024-07-18 00:16] LABS: Calcium 9.4 mg/dl (8.4-10.2); Glucose 105 mg/dl (74-100)
[2024-07-18 00:18] LABS: WBC,Urine Occasional #/hpf (0-3)
[2024-07-18 00:19] LABS: Bacteria,Urine Trace /lpf; RBC,Urine 20-50 #/hpf (0-3)
[2024-07-18] MEDS: IOPAMIDOL-370 (76%);100ML BOTTLE 75 ML IV (00:40)
[2024-07-18] MEDS: SODIUM CHLORIDE 0.9% 10ML SYR (RAD ONLY) 10 ML IV (00:40)
[2024-07-18 00:57] LABS: HIV Combo NEGATIVE (Negative)
[2024-07-18 01:04] LABS: Hepatitis C Ab Qual. W/ RFX NEGATIVE (Negative)
[2024-07-18] MEDS: TAMSULOSIN 0.4MG CAPSULE 0.4 MG PO (01:27)
== END 2024-07-18 01:38 | disposition home or self-care (01) ==
PROVIDERS: Emergency Provider Emergency Medicine; PCP Internal Medicine
DX: N20.1 Calculus of ureter (principal); R31.9 Hematuria, unspecified; M54.50 Low back pain, unspecified; R30.9 Painful micturition, unspecified; F17.210 Nicotine dependence, cigarettes, uncomplicated
CPT/HCPCS: 74177; 80053; 81001; 85025; 86803; 87389; 96361; 96374; 99285; J1885; J7120; Q9967